=== PATIENT | female | born 1935 | race Caucasian/White ===

== ENCOUNTER 2019-12-30 15:52 | Emergency (ER) | payer OTHER ==
[~2019-12-30] VITALS: Ht 149.9 cm; Wt 60.8 kg
[2019-12-30] MEDS ORDERED: CALTRATE 600 +1 EACH (15:58)
[2019-12-30] MEDS ORDERED: AVAPRO300 MG (15:59)
[2019-12-30] MEDS ORDERED: KEPPRA500 MG (15:59)
[2019-12-30] MEDS ORDERED: ASPIR 8181 MG (15:59)
[2019-12-30] MEDS ORDERED: FERROUS FUMARA324 MG (15:59)
[2019-12-30] MEDS ORDERED: SIMVASTATIN80 MG (15:59)
[2019-12-30] MEDS ORDERED: LEVO-T50 MCG (16:00)
[2019-12-30] MEDS ORDERED: DILTIAZEM ER120 M2 (16:00)
[2019-12-30] MEDS ORDERED: HUMALOG MI100 UNIT/2 (16:00)
== END 2019-12-30 22:13 | disposition home or self-care (01) ==
LOC: ER 15:52
DX: S70.01XA Contusion of right hip, initial encounter (principal); R10.2 Pelvic and perineal pain; W18.09XA Striking against other object with subsequent fall, initial encounter; Y93.89 Activity, other specified; Y92.018 Other place in single-family (private) house as the place of occurrence of the external cause; Y99.8 Other external cause status

== ENCOUNTER → 2019-12-31 | Outpatient (CLI) | payer OTHER ==
[~2019-12-31] MED LIST: ASPIR 8181 MG; AVAPRO300 MG; CALTRATE 600 +1 EACH; DILTIAZEM ER120 M2; FERROUS FUMARA324 MG; HUMALOG MI100 UNIT/2; KEPPRA500 MG; LEVO-T50 MCG; SIMVASTATIN80 MG
== END | disposition home or self-care (01) ==
LOC: MRI 12:25
DX: M25.551 Pain in right hip (principal)
CPT/HCPCS: 73721